=== PATIENT | female | born 1955 | race African-American/Black ===

== ENCOUNTER 2023-12-20 03:40 | Emergency (ER) | payer OTHER ==
[~2023-12-20] VITALS: Ht 167.6 cm; Wt 80.0 kg
[2023-12-20 03:43] VITALS: O2SAT 100
[2023-12-20 04:32] LABS: BASOPHILS % 0.4 % (0.0-2.0); EOSINOPHILS % 1.1 % (0.0-5.0); HEMATOCRIT. 39.3 % (36.0-48.0); HEMOGLOBIN. 13.3 g/dL (12.0-16.0); MEAN CORPUSCULAR HEMOGLOBIN 30.7 pg (28.0-32.0); MEAN CORPUSCULAR HGB CONC 33.8 g/dL (31.0-37.0); MEAN CORPUSCULAR VOLUME 90.7 fL (81.0-99.0); MONOCYTES % 4.5 % (2.0-8.0); PLATELET 340 x1000/uL (130-400); RED BLOOD CELL COUNT 4.33 mill/uL (4.2-5.4); RED CELL DISTRIBUTION WIDTH 13.5 % (11.6-14.6); WHITE BLOOD COUNT 13.1 x1000/uL (4.5-11.0)
[2023-12-20 04:45] LABS: INR 0.9; PARTIAL THROMBOPLASTIN TIME 24.5 sec (23.4-31.0); PROTHROMBIN TIME 10.3 sec (9.6-11.0)
[2023-12-20 04:52] LABS: ALANINE AMINOTRANSFERASE 8 IU/L (10-49); ALBUMIN 4.3 g/dL (3.2-4.8); ASPARTATE AMINOTRANSFERASE 20 IU/L (<34); BILIRUBIN TOTAL 0.3 mg/dL (0.1-1.0); CARBON DIOXIDE 27 mEq/L (21-32); CHLORIDE 108 mEq/L (98-107); CREATININE 0.7 mg/dL (0.6-1.0); GLUCOSE 101 mg/dL (70-105); POTASSIUM 4.4 mEq/L (3.5-5.1); PROTEIN TOTAL 7.9 g/dL (6.0-8.3); SODIUM 141 mEq/L (136-145); UREA NITROGEN BLOOD 20 mg/dL (9-23)
[2023-12-20 04:59] LABS: ETHANOL BLOOD < 10 mg/dL (<10); TROPONIN I HIGH SENSITIVITY < 4 ng/L (3.0-34)
[2023-12-20 07:05] LABS: TROPONIN I HIGH SENSITIVITY < 4 ng/L (3.0-34)
[2023-12-20] MEDS: ACETAMINOPHEN 325MG TABLET PO ONE (08:15)
[2023-12-20 08:54] VITALS: BP 115/72; PULSE 65; RESP 16; TEMP 98.2
== END 2023-12-20 09:23 | disposition home or self-care (01) ==
LOC: ER 03:40
DX: R07.89 Other chest pain (principal)
CPT/HCPCS: 36415; 71045; 80053; 80320; 83880; 84484; 85025; 93005; 99285; G0480